=== PATIENT | male | born 1975 | race American Indian/Alaskan Native ===

== ENCOUNTER 2021-11-11 16:42 | Emergency (ER) | payer SELFPAY ==
[2021-11-11 17:14] VITALS: BP 140/84
[2021-11-11] MEDS ORDERED: ZIPRASIDONE MESYLATE 20 MG VIAL IM ONE (17:49)
== END 2021-11-11 18:15 | disposition left against medical advice (07) ==
LOC: ED 16:42
DX: Z13.30 Encounter for screening examination for mental health and behavioral disorders, unspecified (principal); Z53.21 Procedure and treatment not carried out due to patient leaving prior to being seen by health care provider
CPT/HCPCS: J3486